=== PATIENT | male | born 1995 | race Caucasian/White ===

== ENCOUNTER 2021-09-06 20:23 | Emergency (ER) | payer SELFPAY ==
[~2021-09-06] VITALS: Ht 162.6 cm; Wt 68.0 kg
[2021-09-06] MEDS ORDERED: HALOPERIDOL LACTATE 5MG/ML VIAL IM ONE (21:30)
[2021-09-06] MEDS ORDERED: KETOROLAC 30MG/ML VIAL IV ONE (21:30)
[2021-09-06] MEDS ORDERED: SODIUM CHLORIDE 0.9% 1,000 ML IV ONE (21:30)
[2021-09-07 02:00] VITALS: BP 95/62
== END 2021-09-07 02:29 | disposition home or self-care (01) ==
LOC: ER 20:23
DX: F12.129 Cannabis abuse with intoxication, unspecified (principal); Z87.891 Personal history of nicotine dependence
CPT/HCPCS: 93005; 96361; 96372; 96374; 99285; J1630; J1885; J7030